=== PATIENT | male | born 1940 | race Caucasian/White ===

== ENCOUNTER 2020-12-20 10:02 | Day surgery (SDC) | payer MEDICARE, OTHER ==
[2020-12-18 12:08] LABS: COVID AG,FIA SOURCE NASOPHARYNGEAL
[~2020-12-20] VITALS: Ht 170.2 cm; Wt 112.3 kg
[~2020-12-20 10:02] MED LIST: SODIUM CHLORIDE 0.9% 1,000 ML ONE
[2020-12-20] MEDS ORDERED: PROPOFOL 1% 20 ML VIAL IVP ONE (10:03)
[2020-12-20] MEDS ORDERED: LIDOCAINE/PF 2% 5 ML SYRINGE IVP ONE (10:03)
[2020-12-20] MEDS ORDERED: SODIUM CHLORIDE 0.9% 1,000 ML IV ONE (10:30)
[2020-12-20] MEDS ORDERED: BUME1TAB34 PO (11:16)
[2020-12-20] MEDS ORDERED: PANT-31 PO (11:16)
[2020-12-20] MEDS ORDERED: TICA60TA PO (11:16)
[2020-12-20] MEDS ORDERED: GLIP5 PO (11:16)
[2020-12-20] MEDS ORDERED: ATOR10TA84 PO ×2 (11:16→11:18)
[2020-12-20] MEDS ORDERED: HYDR25TA2 PO (11:16)
[2020-12-20] MEDS ORDERED: ZARO5 PO (11:18)
[2020-12-20] MEDS ORDERED: FOLI-130 PO (11:18)
[2020-12-20] MEDS ORDERED: AMLO2.5T96 PO (11:18)
[2020-12-20 11:47] LABS: GLUCOMETER DEV NAME(LOC) SDS.; GLUCOSE,POINT OF CARE 107 MG/DL (70-110)
== END 2020-12-20 14:30 | disposition home or self-care (01) ==
LOC: SURGERY 10:02
PROVIDERS: ATTEND Internal Medicine Gastroenterology
DX: D50.9 Iron deficiency anemia, unspecified (principal); K57.30 Diverticulosis of large intestine without perforation or abscess without bleeding; K64.8 Other hemorrhoids; K44.9 Diaphragmatic hernia without obstruction or gangrene; K29.70 Gastritis, unspecified, without bleeding; J43.9 Emphysema, unspecified; I25.2 Old myocardial infarction; I11.0 Hypertensive heart disease with heart failure; E11.9 Type 2 diabetes mellitus without complications; D64.9 Anemia, unspecified; Z85.46 Personal history of malignant neoplasm of prostate; I48.91 Unspecified atrial fibrillation; I50.32 Chronic diastolic (congestive) heart failure; F03.90 Unspecified dementia, unspecified severity, without behavioral disturbance, psychotic disturbance, mood disturbance, and anxiety; Z87.891 Personal history of nicotine dependence; E66.01 Morbid (severe) obesity due to excess calories; G47.33 Obstructive sleep apnea (adult) (pediatric); I27.23 Pulmonary hypertension due to lung diseases and hypoxia; Z87.01 Personal history of pneumonia (recurrent); Z86.73 Personal history of transient ischemic attack (TIA), and cerebral infarction without residual deficits
CPT/HCPCS: 43235; 45378; 82962; 87426; C9803; J2704; J3490; J7030